=== PATIENT | female | born 1990 | race Caucasian/White ===

== ENCOUNTER 2016-08-11 17:49 | Emergency (ER) | payer MEDICAID ==
--- NOTE | 2016-08-15 14:46 | ER ---
ADMIT: 08/11/2016 RM/LOC: ER [facility] MR#: [id number] [address] [address] RADHIKA FISCHER [address] [place] [address] Emergency Room Report SEX: F AGE: 26 : 1990 DATE: 08/11/2016 ADDENDUM: CHIEF COMPLAINT: Possible seizure. HISTORY OF PRESENT ILLNESS: This is a 26-year-old female who is around 8 to 10 weeks' . Her last menstrual period was early to mid May. Rima brought her in, said they were just eating pancakes, she started twitching and looking to the left, said that she then fell to the ground. COURSE IN THE EMERGENCY ROOM: She has actually seemed to have some seizures while here in the emergency room. She was given a total of Ativan 2 mg IV, magnesium 2 g IV. CBC, CMP, CK, prolactin, toxicology, and and urine was done along with CT head. CT head did show a 3.5 cm arachnoid cyst in the right anglican fossa. CBC is normal except for WBC of 13.9. Chemistries normal except for A potassium of 3.1, glucose 127, CK is 722, prolactin is 57.6. Toxicology screen was negative. She does have a positive test. Urine shows 3+ ketones and 300 glucose. Due to dehydration, she has been given 2 L of fluid. I did speak with Dr. Burciaga in [place]. He said he will consult on the patient. He wants the patient sent to [facility]. I am awaiting for an OB acceptance at [facility]. CLINICAL IMPRESSION: Seizures with first trimester . CARRIE Mosley / Luis Calero MD / solo JOB #: [id number] CC: Clarke Chirinos MD, Attending Physician Solo Swenson MD, Family Physician
[2016-08-18] MEDS ORDERED: KEPPRA DPS500 MG PO (11:08)
[2016-08-18] MEDS ORDERED: FOLVITE-DPS1 MG PO (11:08)
[2016-08-18] MEDS ORDERED: PRENATAL VIT1 TAB PO (11:08)
[2016-08-18] MEDS ORDERED: MICRO-K DPS10 MEQ PO (11:09)
[2016-08-18] MEDS ORDERED: VITAMIN B-6100 MG PO (11:09)
== END 2016-08-11 22:49 | disposition short-term general hospital (02) ==
LOC: ER 17:49
DX: O99.351 Diseases of the nervous system complicating pregnancy, first trimester (principal); R56.9 Unspecified convulsions; Z3A.10 10 weeks gestation of pregnancy

== ENCOUNTER 2016-08-16 18:01 | Inpatient (IN) | payer MEDICAID ==
[~2016-08-16] VITALS: Ht 149.9 cm; Wt 46.2 kg
[2016-08-18] MEDS ORDERED: KEPPRA DPS500 MG PO (11:08)
[2016-08-18] MEDS ORDERED: PRENATAL VIT1 TAB PO (11:08)
[2016-08-18] MEDS ORDERED: FOLVITE-DPS1 MG PO (11:08)
[2016-08-18] MEDS ORDERED: VITAMIN B-6100 MG PO (11:09)
[2016-08-18] MEDS ORDERED: MICRO-K DPS10 MEQ PO (11:09)
--- NOTE | 2016-08-19 07:18 | HP ---
ADMIT: 08/16/2016 RM/LOC: 503 [facility] MR#: [id number] [address] [address] [place] FISCHER [address] [place] [address] History and Physical SEX: F AGE: 26 : 1990 DATE OF SERVICE: CHIEF COMPLAINT: Convulsions. HISTORY OF PRESENT ILLNESS: [place] is a 26-year-old female, who was previously healthy, who presented to the Emergency Department overnight with return of seizure-like activity. She is also in the first trimester of a . Stated, she was otherwise previously healthy. Her symptoms actually began about 2 weeks ago. She presented to the emergency department at [facility] on August 12, 2016 with these episodes. No Neurology Services were available at the [facility], so she was transferred to [facility] in [place] for neurologic evaluation. At that point, an MRI and MRA were ordered and only remarkable for 3 cm arachnoid cyst. An EEG was performed, but at this time, the final results are not available. Lab workup was unremarkable other than a mildly suppressed potassium initially at 3.1, but by the time of arrival at [place], was elevated at 3.4. Neurology recommended initiation of Keppra. AIRCRAFT SALES REPRESENTATIVE was also consulted and they recommended high-dose folic acid. OB ultrasound was performed and showed a viable intrauterine . Family reports that she has been taking her medications at home and otherwise doing well. Her reports that she has been severely depressed after receiving word that her grandfather in the [facility] unexpectedly. Following discharge from [facility], continues to report increased seizure activity and therefore they brought her back to the emergency department overnight. The emergency physician did witness one of these episodes and was concerned for true epileptic seizures. Neurology was consulted as they were available yesterday and recommended she be admitted for further observation. PAST MEDICAL HISTORY: 1. Recent onset of seizure activity. 2. A 3 cm arachnoid cyst. 3. Hypokalemia. 4. Intrauterine in the first trimester. MEDICATIONS: 1. Keppra 750 mg b.i.d. 2. vitamin daily. 3. Folic acid daily. 4. Potassium 10 mEq daily. ALLERGIES: NO KNOWN MEDICAL ALLERGIES. FAMILY HISTORY: Unknown. 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 Her spouse is with her today. REVIEW OF SYSTEMS: This is unobtainable as patient is nonresponsive. ADMIT: 08/16/2016 RM/LOC: 503 [facility] MR#: [id number] [address] [place] [id number] OROPEL, NOCIL F [address] [place] [address] History and Physical SEX: F AGE: 26 : 1990 PHYSICAL EXAMINATION: VITAL SIGNS: Temperature 98.4, pulse 83, respiratory rate 14, blood pressure 131/88, oxygen saturation 96% on room air. GENERAL: The patient is lying on the bed. She will not follow any commands. She will not open her eyes. She will not answer any questions. HEENT: Within normal limits. HEART: Regular rate and rhythm. No murmurs. LUNGS: Clear to auscultation bilaterally. No crackles or wheeze. ABDOMEN: Soft, nontender, and nondistended. Normal bowel sounds. EXTREMITIES: Warm and dry. No edema. NEUROLOGIC: Exam was unobtainable secondary to patient's noncompliance. PSYCHIATRIC: Also unobtainable secondary to patient's mental status. SKIN: No obvious rash or lesion. LABORATORY DATA: Please see electronic record for full detail, but of note, the patient's white blood cell count mildly elevated at 11.8. Glucose also mildly elevated at 106. CK elevated at 722 with a normal creatinine 0.6. Potassium slightly low at 3.4. Urine drug screen from August 11 was negative. Urinalysis showed 300 glucose, 3+ ketones, 1+ blood. No other significant abnormalities on lab evaluation. IMAGING: Reviewed patient's head CT scan from August 11 which showed a probable right arachnoid cyst, but no other acute intracranial findings. Also, reviewed MRA and MRI performed at [facility] in [place]. This showed a grossly unremarkable MRA and MRV. There was also a 3 cm arachnoid cyst anterior to the temporal lobe on the right, but otherwise negative. ASSESSMENT AND PLAN: 1. Seizure-like activity. Question epilepsy versus pseudoseizures. Neurology has been consulted and appreciate their evaluation and recommendations. 2. Intrauterine around 11 weeks. No vaginal complaints at this ADMIT: 08/16/2016 RM/LOC: 503 [facility] MR#: [id number] [facility] [address] [address] OROPEL, NOCIL F [address] [place] [address] History and Physical SEX: F AGE: 26 : 1990 time. We will continue to monitor. We will continue her folic acid supplementation. 3. Hypokalemia. We will continue with oral replacement. 4. Elevated CK. No sign of rhabdomyolysis, but we will continue to monitor CK and hydrate with IV fluids. 5. Severe major depressive disorder. Nursing staff reports overnight she had expressed some suicidal thoughts. Suspect this may be contributing to her other neurologic symptoms. We would consider inpatient psychiatric evaluation once neurologic issues are resolved or fully evaluated. 6. Glucosuria. We will check an A1c and rule out diabetes, but likely not contributing to current symptoms. Carolina Willams MD/ solo JOB #: [id number] CC: Carolina Willams, Attending Physician Jamie Burciaga, Family Physician
--- NOTE | 2016-08-21 23:43 | ER ---
ADMIT: 08/16/2016 RM/LOC: 503 [facility] MR#: [id number] [address] [address] LULIKERMITRADHIKA Baird F [address] [place] [address] Emergency Room Report SEX: F AGE: 26 : 1990 DATE: 08/16/2016 TIME: 1801 hours. Please refer to my T-sheet for complete H and P. Briefly, the patient is a 26-year-old, who comes in with seizures. She was in here within the week for multiple seizures, this has been going on for 2 weeks. The seizures she states are shaking episode. She does not completely lose consciousness, does not bite her lip or tongue. Does not lose control of her bowel or bladder. She has been in a lot of stress recently. Her grandfather about 2 weeks ago. They just moved here, and she is about 10 weeks' . At the time she came in her first time, she was transferred down apparently. According to the family, had an MRI and an EEG that she was told was normal. They did put her on Keppra, though and she went home. She has had several today again, comes in and just feeling weak. PHYSICAL EXAMINATION: VITAL SIGNS: Here; blood pressure 120/90, pulse 105, respirations 16, temperature 99.5, and sat 97%. GENERAL: She is kind of a flat affect. HEENT: Grossly normal. LUNGS: Clear. HEART: Regular. ABDOMEN: Soft. SKIN: No rash. NEUROLOGIC: Alert and oriented, nonfocal. EMERGENCY DEPARTMENT COURSE: I originally talked to Dr. Richard, but then the patient had another episode. Her pulse did go up to 150. She did not lose consciousness completely. Did not bite her tongue or bowel or bladder and she was not postictal. However, we could not rule out a true seizure source. At this point, I established an IV. We gave her 1 g of Keppra at the ADMIT: 08/16/2016 RM/LOC: 503 [facility] MR#: [id number] [address] [address] OROPEL, NOCIL F [address] [place] [address] Emergency Room Report SEX: F AGE: 26 : [address] Richard. I ordered a CBC and a basic again. I gave her 1 L of normal saline bolus. I talked to Dr. Willams. We will admit to the hospital. ASSESSMENT: 1. Seizures, generalized, very atypical with a workup that has been okay so far, but very complex at this time. 2. . 3. Anxiety. PLAN: We are going to admit her to the hospital and have another evaluation by a neurologist. Clarke Chirinos MD/ solo JOB #: [id number] CC: Carolina Willams MD, Attending Physician Jamie Burciaga MD, Family Physician
--- NOTE | 2016-08-30 15:53 | CO ---
ADMIT: 08/16/2016 RM/LOC: 503 [facility] MR#: [id number] [address] [address] LULIKERMITRADHIKA Baird [address] [place] [address] Consultation SEX: F AGE: 26 : 1990 DATE OF CONSULTATION: 08/17/2016 ATTENDING PHYSICIAN: Carolina Willams CONSULTING PHYSICIAN: Fred Richard MD REASON FOR CONSULTATION: Spells. HISTORY OF PRESENT ILLNESS: The patient is a 26-year-old woman with past medical history as below, who is currently 10 weeks , who was admitted to [facility] yesterday for evaluation of the spells. Her spells started about a week ago after her grandfather to whom she was emotionally attached and they are of different description. Her fiance is dividing them into minor and hard ones. Minor are just the patient looks with her eyes to the left side like she is trying to find something, however she snaps out of it every time when he calls her name. The hardest spells are described as generalized stiffening and some tremulousness that can last 2 to 3 minutes, eyes are open or closed, no rolling back, and there has never been any urinary incontinence. No tongue biting. These spells after the stiffening part with all 4 extremities stop and are followed by slightly abnormal behavior like looking into faces close by, not accepting personal space for about 1 minute, and then she screams and cries for about 1 or 2 minutes afterwards till either her fiance or nursing takes her out of it. In my absence last week, the patient was transferred to [facility] for neurological evaluation. Reportedly, had an MRI over there which was normal, as well as EEG which showed only some slowing which was expected to see after some medications being given. She was started on Keppra 500 mg twice daily and discharged to home. She returned yesterday with some more spells which several of them happened in the ER and some more this morning as described above. The patient reportedly ever since she was started on Keppra has nightmares and is behaving slightly oddly. PAST MEDICAL HISTORY: Significant for . No other medical issues. MEDICATIONS: No chronic medications on board other than Keppra which was increased two days ago to 750 twice a day. ALLERGIES: NO KNOWN DRUG ALLERGIES. FAMILY HISTORY: No seizures, epilepsy of any sort in her family tree. Risk factors for epilepsy, none. No head trauma. No encephalitis/meningitis. No family history again as I mentioned above. REVIEW OF SYSTEMS: All systems reviewed, negative except as per HPI. PSYCHIATRIC: Anxiety and depression. NEUROLOGIC: Spells. SOCIAL HISTORY: Denies smoking, alcohol use. Her grandfather was an alcoholic. ADMIT: 08/16/2016 RM/LOC: 503 [facility] MR#: [id number] [address] [address] OROPEL [facility] [address] [place] [address] Consultation SEX: F AGE: 26 : 1990 PHYSICAL EXAMINATION: VITAL SIGNS: Reviewed, unremarkable. The patient is afebrile. Temperature is 98.4, heart rate is 83, respiration 14, blood pressure 131/88, saturation 96% on room air. GENERAL: The patient is in no acute discomfort. HEAD: Normocephalic. NECK: Supple. CHEST: Normal respiratory raises. CARDIOVASCULAR: Regular rate and rhythm. ABDOMEN: Soft. . EXTREMITIES: No clubbing, no cyanosis, no edema. NEUROLOGICAL EXAMINATION: The patient is awake, alert, appropriately oriented, slightly odd behaving at times not following all the commands as instructed, but her speech is normal, language is normal. She appears anxious and sad. Cranial nerves; visual bowie are intact. Pupils equal, reactive. Extraocular muscles intact. Face is symmetric. Facial sensation is normal. Hearing to voice is normal. Uvula midline. Palatal arch is symmetric. Shoulder shrug is symmetric. Tongue is midline, moveable. Motor examination reveals full strength, fine motor movements appear intact despite some clumsiness, and does not appear to be neurological. Sensory to touch, nonlateralizing. Reflexes brisk symmetric. Ankle clonus, 4 beats. Babinski. Flexor response, halting her gait, moves towards the examiner. Spell witnessed during the encounter was brought on thoughts about her grandfather. All her extremities extended and apart abducted to about 30 to 40 degrees in upper extremities, and 20 degrees lower extremities, and jittery. The patient turned her head towards the examiner and was saying this is it with a shaky voice. I asked her to remember if she wore blue and was found that she was able to recall after the spell finished. LABORATORY DATA: Reviewed. CT of the head reviewed, normal except for some arachnoid cyst in right temporal region, but no significant mass effect. This is chronic situation. ADMIT: 08/16/2016 RM/LOC: 503 [facility] MR#: [id number] [address] [address] OROPEL, RADHIKA [address] [place] [address] Consultation SEX: F AGE: 26 : 1990 ASSESSMENT: 1. Non-epileptogenic spells. 2. Side effects of Keppra. 3. Anxiety depression. PLAN: We will start pyridoxine for Keppra side effects and reduce the Keppra dose to 500 mg b.i.d. I would not want to reduce the Keppra even more at this time without more EEG monitoring. The EEG monitoring will be obtained on outpatient basis, then Keppra will be taken off to minimize the effect on the . I do recommend inpatient psychiatric evaluation and treatment. Thank you very much for this interesting consultation. Fred Richard MD/ solo JOB #: [id number] CC: Carolina Willams, Attending Physician aJmie Burciaga, Family Physician
--- NOTE | 2016-09-05 08:19 | DS ---
ADMIT: 08/16/2016 RM/LOC: 503 [facility] MR#: [id number] [id number] [place], [place] [address] RADHIKA FISCHER [address] [place] [address] General Discharge Summary SEX: F AGE: 26 : 1990 ADMISSION DATE: 08/16/2016 DISCHARGE DATE: 08/17/2016 DISCHARGE DIAGNOSES: 1. Convulsions, non-epileptic. 2. Major depressive disorder. 3. Keppra side effects. 4. Intrauterine in the first trimester. 5. Elevated CK. 6. Glucosuria. CONSULTATIONS: 1. Neurology, Fred Richard MD. 2. Psychiatry via Telehealth. PROCEDURES: None. REASON FOR ADMISSION: The patient was admitted as a city call patient for concern of seizure-like activity. The patient was admitted to medical surgical floor for routine evaluation of her episodes. Neurology was consulted. She had recently been admitted at [facility] in [place] for similar complaints and records were obtained and reviewed. This included brain MRI, as well as EEG. She was placed on seizure precautions. Her Keppra and folic acid that were previously prescribed from her last hospitalization were continued. She had IV fluids, and diet as tolerated. Upon initial evaluation, she was non-conversant. Nursing staff, however, reported that she would then wake up and cry out and had suicidal statements. Once Neurology evaluated the patient, she did have another "episode," and they felt this was not epileptic in nature and more likely related to her psychiatric diagnoses. She had mild hypokalemia that was actually improved from her last hospitalization and was replaced orally. She had known intrauterine given evaluation within the last 1 week, and no vaginal symptoms recommended that she continue her high-dose folic acid and establish with STERILE PREPARATION TECHNICIAN once discharged. She also had a mildly elevated CK, but normal renal function. This was treated with IV fluids. Her severe major depressive disorder warranted a psychiatric consult. This was performed via Telehealth. Upon their evaluation, they felt that inpatient psychiatric treatment would be detrimental given social situation and concerns were other inpatient worsening her symptoms. Therefore, recommended she be discharged to home with followup in their clinic in 1 to 2 days and Neurology follow up the day after that. Neurology also felt that her Keppra dose was contributing to some of her symptoms and therefore recommended decreasing that as well. ADMIT: 08/16/2016 RM/LOC: 503 [facility] MR#: [id number] [address] [address] RADHIKA FISCHER F [address] [place] [address] General Discharge Summary SEX: F AGE: 26 : 1990 DISCHARGE MEDICATIONS: 1. Folvite (folic acid) 4 mg daily. 2. Keppra 500 mg twice daily. 3. Potassium chloride 10 mEq daily. 4. vitamin daily. DISCHARGE INSTRUCTIONS: The patient was discharged to home in stable condition. She will be seen by Psychiatry on Saturday. She will have a followup appointment with Dr. Richard in Neurology the following day, on Saturday. Routine precautions were given and family was instructed to take to [facility] or [facility] should symptoms worsen. It was also recommended that she establish with OB as soon as possible. Carolina Willams MD/ sandral JOB #: [id number] CC: Carolina Willams MD, Attending Physician Jamie Burciaga MD, Family Physician
== END 2016-08-17 17:41 | disposition home or self-care (01) | DRG 781 ==
LOC: ER 18:01 → 5MS 20:09
PROVIDERS: ADMIT Family Medicine
DX: O99.89 Other specified diseases and conditions complicating pregnancy, childbirth and the puerperium (principal); R56.9 Unspecified convulsions; R45.851 Suicidal ideations; O99.281 Endocrine, nutritional and metabolic diseases complicating pregnancy, first trimester; E87.6 Hypokalemia; O99.341 Other mental disorders complicating pregnancy, first trimester; F32.9 Major depressive disorder, single episode, unspecified; R81 Glycosuria; O26.891 Other specified pregnancy related conditions, first trimester; F41.9 Anxiety disorder, unspecified; O9A.211 Injury, poisoning and certain other consequences of external causes complicating pregnancy, first trimester; T42.6X5A Adverse effect of other antiepileptic and sedative-hypnotic drugs, initial encounter; Z3A.11 11 weeks gestation of pregnancy